=== PATIENT | male | born 1980 | race Caucasian/White ===

== ENCOUNTER 2020-07-10 08:09 | Emergency (ER) | payer OTHER ==
[2020-07-10 08:16] VITALS: BP 121/84
--- NOTE | 2020-07-10 08:33 | ED Physician Documentation ---
PD HPI SKIN - Stated complaint Stated Complaint: RT ARM SORE - Chief complaint Chief Complaint: Wound - History obtained from History obtained from: Patient - Additional information Additional information: Pt comes to the ED with chief complaint of outbreak of sores on right arm for the last 2 days. 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 Patient does not remember being exposed to any plants or other irritants, but noticed a cluster of vesicles on his arm at the end of the day. He states this is reminiscent of when he had something similar on his neck and shoulder and was told he had shingles. Patient denies any malaise, fevers, chills, aches, or headache. He states he tried putting hydrocortisone cream on the lesions, but that this just made it worse. No lesions anywhere else. No other complaints at this time. He states that the lesions burn but are not distinctly painful. Review of Systems Ten Systems: 10 systems reviewed and negative Constitutional: reports: Reviewed and negative Eyes: reports: Reviewed and negative Ears: reports: Reviewed and negative Nose: reports: Reviewed and negative Throat: reports: Reviewed and negative Cardiac: reports: Reviewed and negative Respiratory: reports: Reviewed and negative GI: reports: Reviewed and negative : reports: Reviewed and negative Skin: reports: Rash, Lesions Musculoskeletal: reports: Reviewed and negative Neurologic: reports: Reviewed and negative Psychiatric: reports: Reviewed and negative Endocrine: reports: Reviewed and negative Immunocompromised: reports: Reviewed and negative PD PAST MEDICAL HISTORY - Past Medical History Past Medical History: Yes Cardiovascular: None Respiratory: None Neuro: None Endocrine/Autoimmune: None GI: None : None HEENT: None Psych: None Musculoskeletal: None Derm: Herpes zoster - Past Surgical History Past Surgical History: No - Present Medications Home Medications: Ambulatory Orders Medication Instructions Recorded Confirmed Acyclovir 800 mg PO 5XD #35 tablet 07/10/20 Loratadine [Claritin] 10 mg PO DAILY 07/10/20 07/10/20 - Allergies Allergies/Adverse Reactions: Allergies Allergy/AdvReac Type Severity Reaction Status Date / Time No Known Drug Allergies Allergy Verified 07/10/20 08:13 - Social History Does the pt smoke?: No Smoking Status: Former smoker Does the pt drink ETOH?: No Does the pt have substance abuse?: No - Immunizations Immunizations are current?: Yes PD ED PE NORMAL - Vitals Vital signs reviewed: Yes - General General: Alert and oriented X 3, No acute distress - HEENT HEENT: Atraumatic, PERRL, EOMI, Moist mucous membranes - Neck Neck: Supple, no meningeal sign - Cardiac Cardiac: Strong equal pulses - Respiratory Respiratory: No respiratory distress - Derm Derm: Normal color, Warm and dry, Other (Cluster within 4 cm of about 10 ulcerated lesions on a raised red base, which appear to be ruptured vesicles, Located on flexor surface of mid right forearm. Remainder of skin exam normal.) - Extremities Extremities: No deformity, No edema - Neuro Neuro: Alert and oriented X 3 - Psych Psych: Normal mood, Normal affect Results - Vitals Vitals: Vital Signs - 24 hr 07/10/20 08:14 Temperature 36.3 C L Heart Rate 59 L Respiratory 16 Rate Blood Pressure 121/84 H O2 Saturation 99 Oxygen O2 Source Room air PD MEDICAL DECISION MAKING - ED course Complexity details: considered differential, d/w patient ED course: I discussed with the patient that there is no way to know for sure what has caused the vesicular outbreak. While this is a very unusual location and distribution for a shingles outbreak, especially in a person who is not immunocompromised, the patient also had is arms covered on the day the lesions appeared and does not remember making any contact with plants. I discussed with the patient that at this point we will put him on acyclovir which he may take if he wishes. I have explained to him that either condition will be self- limited, so the acyclovir at this point is optional. We have discussed indicat ions for follow-up and return. Departure - Departure Disposition: 01 Home, Self Care Clinical Impression: Vesicular eruption of skin Condition: Stable Instructions: ED Dermatitis Non Specific Rash, ED Shingles Prescriptions: Acyclovir 800 mg PO 5XD #35 tablet Comments: It is not clear whether the ulcerated lesions on your arm are due to a plant exposure or due to a an outbreak of the same virus that causes shingles. Either one can cause the same appearance of lesions, and while this is a very atypical location and distribution for a shingles outbreak, there is also no clear-cut incidence of exposure to a poisonous, "stinging" plant, so it is difficult to know for sure. You may take the antivirals as directed to help shorten the course, should this be a zoster outbreak. This will not interfere with any medications that you were given in a couple weeks for your surgery. Please follow-up with your primary doctor if the lesions are not better in a week.
== END 2020-07-10 08:58 | disposition home or self-care (01) ==
LOC: ED 08:09
DX: R23.8 Other skin changes (principal); Z87.891 Personal history of nicotine dependence
CPT/HCPCS: 99282; 99284

== ENCOUNTER 2021-03-12 06:45 | Outpatient (CLI) | payer OTHER ==
--- NOTE | 2021-03-12 10:03 | Ultrasound Report ---
PROCEDURE: Abdomen Complete INDICATIONS: EVAL FOR LIVER CIRRHOSIS TECHNIQUE: Real-time scanning was performed of the abdominal and retroperitoneal organs, with image documentatio n. COMPARISON: None. FINDINGS: Liver: Liver is normal in size with a smooth margin. The parenchyma is slightly diffusely coarse but normal in echogenicity. Gallbladder: Normal gallbladder without stones, sludge, wall thickening, or pericholecystic fluid. Biliary ducts: Intrahepatic bile ducts are non-dilated. Extrahepatic bile duct caliber measures 4.4 mm. Normal is 6-7 mm or less in diameter, or 10 mm or less post-cholecystectomy. Pancreas: Visualized portions of the pancreas are sonographically normal. Spleen: Spleen is minimally enlarged measuring 13.8 cm in length. Kidneys: Kidneys are normal in size and echotexture. Right kidney measures 10.0 cm long; left kidne y measures 10.6 cm long. No hydronephrosis or nephrolithiasis. No solid masses. Aorta: Visualized aorta is normal in caliber at less than 3 cm. Iliacs: Proximal common iliac arteries are normal in caliber at less than 2.5 cm. IVC: Intrahepatic inferior vena cava is patent. Miscellaneous: No free abdominal fluid. IMPRESSION: 1. Minimally coarsened hepatic parenchymal is likely evidence of known intrinsic liver disease. 2. No visible hepatic lesions. 3. Minimally enlarged spleen, nonspecific. This may be physiologic for the patient or evidence of ear ly portal hypertension. Reviewed by: Naila Boyle MD on 03/12/2021 10:02 AM PST Approved by: Naila Boyle MD on 03/12/2021 10:02 AM PST Station ID: [id number]
== END 2021-03-12 06:46 | disposition home or self-care (01) ==
LOC: DI 06:45
PROVIDERS: ATTEND Internal Medicine
DX: E83.110 Hereditary hemochromatosis (principal); R16.1 Splenomegaly, not elsewhere classified